=== PATIENT | male | born 1995 | race Caucasian/White ===

== ENCOUNTER 2019-03-25 18:37 | Emergency (ER) | payer OTHER ==
[~2019-03-25] VITALS: Ht 185.4 cm; Wt 88.2 kg
[2019-03-25 19:03] VITALS: BP 160/70
--- NOTE | 2019-03-25 19:17 | NUR ---
MOVED TO ER BED 3
--- NOTE | 2019-03-25 19:30 | NUR ---
PT CAME TO ER C/O OF LACERATION TO LEFT HAND, FIFTH DIGIT. LACERATION IS 3CM IN LENGTH, NO BLEEDING NOTED. PT DENIES PAIN, PAIN LEVEL 0/10. PT STATED "AT WORK I CUT MY FINGER WITH METAL" PT STATED "I RECEIVED A TDAP ABOUT 1.5 YEARS AGO. NKA. NO MED HX. SAFETY MEASURES IN PLACE. WAITING FOR ERMD TO EVALUATE PT.
--- NOTE | 2019-03-25 19:42 | NUR ---
XRAY AT BEDSIDE
--- NOTE | 2019-03-25 19:45 | NUR ---
ERMD AT BEDSIDE
--- NOTE | 2019-03-25 19:45 | NUR ---
ERMD GAVE LIDOCAINE SUBQ FOR LACERATION ON LEFT HAND, FIFTH DIGIT
[2019-03-25] MEDS ORDERED: LIDOCAINE MPF 1% - 5 mL VIAL 5 ML ONE (19:54)
--- NOTE | 2019-03-25 20:05 | NUR ---
NEOSPORIN APPLIED TO LACERATION ON LEFT HAND FIFTH DIGIT, WRAPPED IN GAUZE
--- NOTE | 2019-03-25 20:09 | NUR ---
Ruthann naylor in ED - 03/25/19 at 2009 by ART2 KATALINA GAVE LIDOCAINE SUBQ FOR LACERATION ON LEFT HAND, FIFTH DIGIT
--- NOTE | 2019-03-25 20:12 | NUR ---
Patient discharged with v/s stable. Written and verbal after care instructions given and explained. Pt encouraged to keep area clean and dry. Patient alert, oriented and verbalized understanding of instructions. Ambulatory with steady gait. All questions addressed prior to discharge. ID band removed. Patient advised come back to ER in 10 days for suture removal. Rx of IBUPROFEN WAS given. Patient educated on indication of medication including possible reaction and side effects. Opportunity to ask questions provided and answered.
[2019-03-25 20:15] VITALS: BP 160/70
[2019-03-25] MEDS ORDERED: NEOMYCIN/POLYMYXIN/BACITRACIN 0.9 GM/1 PKT TP ONE (20:16)
== END 2019-03-25 20:12 | disposition home or self-care (01) ==
LOC: MED 18:37
DX: S61.217A Laceration without foreign body of left little finger without damage to nail, initial encounter (principal); X58.XXXA Exposure to other specified factors, initial encounter; Y93.89 Activity, other specified; Y92.89 Other specified places as the place of occurrence of the external cause; Y99.8 Other external cause status
CPT/HCPCS: 12002; 73130; 99283; J2001; Q0092